=== PATIENT | female | born 2000 ===

== ENCOUNTER 2023-06-30 11:54 | Emergency (ER) | payer SELFPAY ==
[~2023-06-30] VITALS: Ht 154.9 cm; Wt 66.8 kg
[2023-06-30 12:00] VITALS: BP 119/65; PULSE 72; RESP 16; TEMP 98.5
== END 2023-06-30 13:35 | disposition left against medical advice (07) ==
LOC: EMS 12:01
DX: F12.90 Cannabis use, unspecified, uncomplicated (principal)
CPT/HCPCS: 99281; Z7502